=== PATIENT | female | born 1975 | race Caucasian/White ===

== ENCOUNTER 2018-05-10 19:16 | Emergency (ER) | payer OTHER ==
[2018-05-10 20:03] LABS: BASOPHILS % (AUTO) 1.5 % (0.0-5.0); EOSINOPHILS % (AUTO) 1.1 % (0.0-8.0); HEMATOCRIT 22.2 % (36-48); LYMPHOCYTES % (AUTO) 46.1 % (21.0-51.0); MEAN CORPUSCULAR HEMOGLOBIN 24.6 pg (27.0-33.0); MEAN CORPUSCULAR HGB CONC 30.6 g/dL (32.0-36.0); MEAN CORPUSCULAR VOLUME 80.5 fL (79-99); MONOCYTES % (AUTO) 7.8 % (3.0-13.0); NEUTROPHILS % (AUTO) 43.5 % (40.0-77.0); PLATELET COUNT (AUTO) 241 K/uL (130-400); RED BLOOD CELL COUNT(AUTO) 2.76 MIL/uL (4.00-5.50); RED CELL DISTRIBUTION WIDTH 17.6 % (11.0-15.5); RETICULOCYTE % (AUTO) 3.19 % (0.42-2.23); WHITE BLOOD COUNT (AUTO) 3.6 K/uL (4.8-10.8)
[2018-05-10 20:17] LABS: POTASSIUM 4.4 mmol/L (3.5-5.1)
[2018-05-10 20:30] LABS: ALBUMIN 3.4 g/dL (3.5-5.0); BILIRUBIN,TOTAL 0.3 mg/dL (0.2-1.0); THYROID STIMULATING HORMONE 36.37 uIU/mL (0.36-3.74); TOTAL PROTEIN, SERUM 6.8 g/dL (6.0-8.3)
[2018-05-10 20:57] LABS: INR 1.12 (0.85-1.15); PROTHROMBIN TIME 11.7 SEC (9.6-11.6)
[2018-05-10 21:02] LABS: PARTIAL THROMBOPLASTIN TIME 23.6 SEC (26.3-35.5)
[2018-05-11] MEDS ORDERED: HYDR50CA50 PO (04:31)
[2018-05-11] MEDS ORDERED: FERS325 PO (04:31)
[2018-05-11] MEDS ORDERED: TRAZ-185 PO (04:31)
[2018-05-11] MEDS ORDERED: ACET325C PO (04:31)
[2018-05-11] MEDS ORDERED: ONDA4TAB10 PO (04:31)
[2018-05-11] MEDS ORDERED: CHLO25CA5 PO (04:31)
[2018-05-11] MEDS ORDERED: MAG360OR93 PO (04:31)
[2018-05-11] MEDS ORDERED: BACI1PAC TP (04:31)
[2018-05-11] MEDS ORDERED: LOPE2CAP PO (04:31)
[2018-05-11] MEDS ORDERED: LEVO112T7 PO (04:31)
[2018-05-11] MEDS ORDERED: MAGN400O17 PO (04:31)
[2018-05-11] MEDS ORDERED: BENZ1LOZ68 MM (04:31)
[2018-05-11] MEDS ORDERED: SERT50TA12 PO (04:31)
[2018-05-11] MEDS ORDERED: TRAZ-187 PO (04:31)
[2018-05-11] MEDS ORDERED: LEVO125 PO (15:54)
== END 2018-05-10 21:19 ==
LOC: EDH 19:16
DX: D64.89 Other specified anemias (principal); E03.9 Hypothyroidism, unspecified; E16.2 Hypoglycemia, unspecified; I95.9 Hypotension, unspecified; F32.9 Major depressive disorder, single episode, unspecified; F41.9 Anxiety disorder, unspecified; Z90.49 Acquired absence of other specified parts of digestive tract; Z98.890 Other specified postprocedural states; Z88.6 Allergy status to analgesic agent
CPT/HCPCS: 36415; 80053; 82948; 84443; 85025; 85045; 85610; 85730

== ENCOUNTER 2018-05-10 22:19 | Inpatient (IN) | payer SELFPAY ==
[~2018-05-10] VITALS: Ht 170.2 cm; Wt 79.2 kg
[2018-05-11 00:38] VITALS: BP 92/57
[2018-05-11] MEDS ORDERED: SODIUM CHLORIDE 0.9% 250 ML IV ONE (01:45)
[2018-05-11 04:00] VITALS: BP 93/60
[2018-05-11] MEDS ORDERED: ONDANSETRON HCL 4 MG/2 ML VIAL IVP PRN (04:30)
[2018-05-11] MEDS ORDERED: ACETAMINOPHEN 325 MG TAB PO PRN ×2 (04:30→14:45)
[2018-05-11] MEDS ORDERED: MAGN400O17 PO (04:31)
[2018-05-11] MEDS ORDERED: ONDA4TAB10 PO (04:31)
[2018-05-11] MEDS ORDERED: BACI1PAC TP (04:31)
[2018-05-11] MEDS ORDERED: SERT50TA12 PO (04:31)
[2018-05-11] MEDS ORDERED: HYDR50CA50 PO (04:31)
[2018-05-11] MEDS ORDERED: TRAZ-185 PO (04:31)
[2018-05-11] MEDS ORDERED: BENZ1LOZ68 MM (04:31)
[2018-05-11] MEDS ORDERED: LEVO112T7 PO (04:31)
[2018-05-11] MEDS ORDERED: MAG360OR93 PO (04:31)
[2018-05-11] MEDS ORDERED: LOPE2CAP PO (04:31)
[2018-05-11] MEDS ORDERED: FERS325 PO (04:31)
[2018-05-11] MEDS ORDERED: CHLO25CA5 PO (04:31)
[2018-05-11] MEDS ORDERED: TRAZ-187 PO (04:31)
[2018-05-11] MEDS ORDERED: ACET325C PO (04:31)
[2018-05-11 06:51] LABS: HEMATOCRIT 24.7 % (36-48); MEAN CORPUSCULAR HEMOGLOBIN 25.5 pg (27.0-33.0); MEAN CORPUSCULAR HGB CONC 31.8 g/dL (32.0-36.0); MEAN CORPUSCULAR VOLUME 80.3 fL (79-99); PLATELET COUNT (AUTO) 264 K/uL (130-400); RED BLOOD CELL COUNT(AUTO) 3.08 MIL/uL (4.00-5.50); RED CELL DISTRIBUTION WIDTH 17.4 % (11.0-15.5); WHITE BLOOD COUNT (AUTO) 3.9 K/uL (4.8-10.8)
[2018-05-11 07:00] LABS: CREATININE 0.8 mg/dL (0.5-1.5); POTASSIUM 4.4 mmol/L (3.5-5.1)
[2018-05-11 08:00] VITALS: BP 94/56
[2018-05-11] MEDS: PANTOPRAZOLE SODIUM 40 MG TABLET.DR PO SCH (10:42)
[2018-05-11 12:00] VITALS: BP 86/55
[2018-05-11] MEDS ORDERED: ONDANSETRON ODT 4 MG TAB PO PRN (14:45)
[2018-05-11] MEDS ORDERED: MAGNESIUM HYDROXIDE 30 ML/UDCUP PO PRN (14:45)
[2018-05-11] MEDS ORDERED: TRAZODONE HCL 50 MG TAB PO PRN (14:45)
[2018-05-11] MEDS ORDERED: BENZOCAINE/MENTH/CETYLPYRD CL 1 EACH LOZENGE MM SCH (14:45)
[2018-05-11] MEDS ORDERED: **HM**(Hydroxyzine Pamoate 50 MG PO PRN (15:13)
[2018-05-11 15:20] LABS: RETICULOCYTE % (AUTO) 2.26 % (0.42-2.23)
[2018-05-11 15:46] LABS: % IRON SATURATION 2.6 % (22-44)
[2018-05-11] MEDS ORDERED: LEVO125 PO (15:54)
[2018-05-11 16:00] VITALS: BP 86/51
[2018-05-11 19:37] VITALS: BP 101/61
[2018-05-11] MEDS: TRAZODONE HCL 100 MG TABLET PO SCH (21:20)
[2018-05-11] MEDS: SODIUM CHLORIDE 0.9% 1000ML 1,000 ML IV SCH (21:21)
[2018-05-12] VITALS (8 sets, daily range): BP systolic 87–98; BP diastolic 38–62
[2018-05-12] MEDS: SODIUM CHLORIDE 0.9% 1000ML 1,000 ML IV SCH ×2 (01:00→13:25)
[2018-05-12 04:36] LABS: HEMATOCRIT 24.5 % (36-48); MEAN CORPUSCULAR HEMOGLOBIN 24.9 pg (27.0-33.0); MEAN CORPUSCULAR VOLUME 80.4 fL (79-99); NUCLEATED RED BLOOD CELLS 0.1 % (0.0-0.19); PLATELET COUNT (AUTO) 232 K/uL (130-400); RED BLOOD CELL COUNT(AUTO) 3.05 MIL/uL (4.00-5.50); RED CELL DISTRIBUTION WIDTH 17.6 % (11.0-15.5); WHITE BLOOD COUNT (AUTO) 4.7 K/uL (4.8-10.8)
[2018-05-12] MEDS ORDERED: LEVOTHYROXINE 125 MCG TABLET ONE (04:37)
[2018-05-12 04:53] LABS: BILIRUBIN,TOTAL 0.3 mg/dL (0.2-1.0); CREATININE 0.8 mg/dL (0.5-1.5); MAGNESIUM 2.3 mg/dL (1.80-2.40); POTASSIUM 4.1 mmol/L (3.5-5.1); TOTAL PROTEIN, SERUM 5.9 g/dL (6.0-8.3)
[2018-05-12] MEDS: LEVOTHYROXINE 125 MCG TABLET PO SCH (05:42)
[2018-05-12] MEDS: PANTOPRAZOLE SODIUM 40 MG TABLET.DR PO SCH (08:27)
[2018-05-12] MEDS: SERTRALINE HCL 50 MG TABLET PO SCH (08:34)
[2018-05-12] MEDS: FERROUS SULFATE 325 MG TABLET.DR PO SCH (08:34)
[2018-05-12] MEDS: ALPRAZOLAM 0.25 MG TABLET PO PRN ×2 (13:24→19:56)
[2018-05-12] MEDS ORDERED: COMPOUND IV MISC 1 EACH IVSOLN MISC PRN (16:15)
[2018-05-12] MEDS ORDERED: PEG 3350/NA SULF,BICARB,CL/KCL 4000 ML SOLN PO SCH (17:00)
[2018-05-12 18:17] LABS: BASOPHILS % (AUTO) 1.3 % (0.0-5.0); EOSINOPHILS % (AUTO) 1.8 % (0.0-8.0); HEMATOCRIT 25.1 % (36-48); LYMPHOCYTES % (AUTO) 48.4 % (21.0-51.0); MEAN CORPUSCULAR HEMOGLOBIN 25.2 pg (27.0-33.0); MEAN CORPUSCULAR HGB CONC 31.2 g/dL (32.0-36.0); MEAN CORPUSCULAR VOLUME 80.8 fL (79-99); MONOCYTES % (AUTO) 7.8 % (3.0-13.0); NEUTROPHILS % (AUTO) 40.7 % (40.0-77.0); PLATELET COUNT (AUTO) 235 K/uL (130-400); RED BLOOD CELL COUNT(AUTO) 3.11 MIL/uL (4.00-5.50); RED CELL DISTRIBUTION WIDTH 17.7 % (11.0-15.5); WHITE BLOOD COUNT (AUTO) 3.8 K/uL (4.8-10.8)
[2018-05-12 18:27] LABS: CREATININE 0.8 mg/dL (0.5-1.5); POTASSIUM 4.2 mmol/L (3.5-5.1)
[2018-05-12 18:28] LABS: INR 1.17 (0.85-1.15); PROTHROMBIN TIME 12.2 SEC (9.6-11.6)
[2018-05-13] VITALS (20 sets, daily range): BP systolic 69–110; BP diastolic 37–77
[2018-05-13] MEDS: TRAZODONE HCL 100 MG TABLET PO SCH (02:09)
[2018-05-13] MEDS ORDERED: SODIUM CHLORIDE 0.9% 500ML 500 ML IV ONE (05:08)
[2018-05-13 05:13] LABS: HEMATOCRIT 24.5 % (36-48); MEAN CORPUSCULAR HEMOGLOBIN 24.9 pg (27.0-33.0); MEAN CORPUSCULAR HGB CONC 30.8 g/dL (32.0-36.0); MEAN CORPUSCULAR VOLUME 81.1 fL (79-99); PLATELET COUNT (AUTO) 227 K/uL (130-400); RED BLOOD CELL COUNT(AUTO) 3.03 MIL/uL (4.00-5.50); RED CELL DISTRIBUTION WIDTH 17.9 % (11.0-15.5); WHITE BLOOD COUNT (AUTO) 4.8 K/uL (4.8-10.8)
[2018-05-13 05:34] LABS: CREATININE 0.7 mg/dL (0.5-1.5); POTASSIUM 4.6 mmol/L (3.5-5.1); THYROID STIMULATING HORMONE 90.24 uIU/mL (0.36-3.74)
[2018-05-13] MEDS: SODIUM CHLORIDE 0.9% 1000ML 1,000 ML IV SCH ×2 (06:31→07:00)
[2018-05-13] MEDS ORDERED: EPHEDRINE SULFATE 50 MG/ML AMPULE ONE (07:15)
[2018-05-13] MEDS ORDERED: PROPOFOL 10 MG/ML 20ML VIAL IV ONE (07:16)
[2018-05-13] MEDS ORDERED: GLYCOPYRROLATE 0.2 MG/ML 5 ML VIAL ONE (07:20)
[2018-05-13] MEDS ORDERED: KETAMINE HCL 100 MG/ML 5ML VIAL IJ ONE (07:23)
[2018-05-13] MEDS ORDERED: ESMOLOL HCL 10 MG/ML 10 ML VIAL ONE ×2 (07:26→07:44)
[2018-05-13] MEDS ORDERED: GLYCOPYRROLATE 1 MG/5 ML SYRINGE ONE (07:38)
[2018-05-13] MEDS ORDERED: NEOSTIGMINE 5MG/5ML SYR IV ONE (07:39)
[2018-05-13] MEDS ORDERED: ROCURONIUM 10MG/1ML SYR 10 MG/ML ML ONE (07:39)
[2018-05-13] MEDS ORDERED: FENTANYL CITRATE PF 50 MCG/1 ML 2ML VIAL ONE (07:39)
[2018-05-13] MEDS ORDERED: IRON SUCROSE COMPLEX 100 MG in SODIUM CHLORIDE 0.9% 50 ML IV SCH (09:00)
[2018-05-13] MEDS: SERTRALINE HCL 50 MG TABLET PO SCH (09:29)
[2018-05-13] MEDS: LEVOTHYROXINE 125 MCG TABLET PO SCH (09:30)
[2018-05-13] MEDS: FERROUS SULFATE 325 MG TABLET.DR PO SCH (09:30)
[2018-05-13] MEDS: PANTOPRAZOLE SODIUM 40 MG TABLET.DR PO SCH (09:30)
[2018-05-13] MEDS: ALPRAZOLAM 0.25 MG TABLET PO PRN ×2 (09:33→18:00)
[2018-05-13 12:50] LABS: HEMATOCRIT 27.3 % (36-48)
[2018-05-13] MEDS ORDERED: LEVO125 PO (17:08)
[2018-05-13] MEDS ORDERED: SERT50TA12 PO (17:08)
== END 2018-05-13 19:44 | disposition home or self-care (01) | DRG 812 ==
LOC: EDH 22:19 → OBSVTOIN 22:38 → EDHIP 22:38 → INTOOBSV 22:38 → 3BH 23:15
PROVIDERS: ADMIT Internal Medicine; ATTEND Internal Medicine
PROC: 30233N1 Transfusion of Nonautologous Red Blood Cells into Peripheral Vein, Percutaneous Approach (ICD-10-PCS; 2018-05-12)
PROC: 0DJ08ZZ Inspection of Upper Intestinal Tract, Via Natural or Artificial Opening Endoscopic (ICD-10-PCS; principal; 2018-05-13)
DX: D64.9 Anemia, unspecified (principal); E03.9 Hypothyroidism, unspecified; I95.89 Other hypotension; F32.9 Major depressive disorder, single episode, unspecified; D50.9 Iron deficiency anemia, unspecified; D72.819 Decreased white blood cell count, unspecified; F41.9 Anxiety disorder, unspecified; I10 Essential (primary) hypertension; Z90.3 Acquired absence of stomach [part of]; Z98.84 Bariatric surgery status; Z88.8 Allergy status to other drugs, medicaments and biological substances
CPT/HCPCS: 36415; 36430; 43235; 71045; 80048; 80053; 81025; 82607; 82728; 82746; 83010; 83540; 83550; 83615; 83735; 84443; 85014; 85018; 85025; 85027; 85045; 85060; 85610; 86850; 86900; 86901; 86922; G0378; J1756; J2704; J2710; J3010; J3490; J7030; J7040; P9016